=== PATIENT | male | born 1965 | race American Indian/Alaskan Native ===

== ENCOUNTER 2017-12-21 09:56 | Outpatient (CLI) | payer OTHER ==
--- NOTE | 2017-12-21 11:11 | XRay Report ---
LUMBOSACRAL SPINE, 3 VIEWS: History: Chronic back pain Findings: Borderline bone mineralization. There is straightening of the normal lordosis. Moderate to severe degenerative disc disease and facet arthropathy are identified at L3-4, L4-5 and L5-S1. There is no evidence for compression deformity, subluxation or bone lesion. The SI joints and sacrum are within normal limits. Impression: Lumbar spondylosis.
== END 2017-12-21 09:57 | disposition home or self-care (01) ==
LOC: XRAY 09:56
PROVIDERS: ATTEND Internal Medicine
DX: M51.36 Other intervertebral disc degeneration, lumbar region (principal); M47.896 Other spondylosis, lumbar region; M12.88 Other specific arthropathies, not elsewhere classified, other specified site
CPT/HCPCS: 72100